=== PATIENT | female | born 1985 | race African-American/Black ===

== ENCOUNTER 2020-07-27 09:10 | Emergency (ER) | payer OTHER, BC ==
[~2020-07-27] VITALS: Ht 160 cm; Wt 65.9 kg
[2020-07-27 09:46] VITALS: BP 135/94
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
[2020-07-27] MEDS ORDERED: hydrOXYzine 25 MG TABLET PO ONE (10:45)
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
[2020-07-27] MEDS ORDERED: METH-561 PO (11:53)
[2020-07-27] MEDS ORDERED: IBUPROFEN 400 MG TABLET. PO ONE (12:00)
== END 2020-07-27 12:17 | disposition home or self-care (01) ==
LOC: ER 09:10
DX: S96.812A Strain of other specified muscles and tendons at ankle and foot level, left foot, initial encounter (principal); M25.572 Pain in left ankle and joints of left foot; R07.89 Other chest pain; M54.5 Low back pain; G43.909 Migraine, unspecified, not intractable, without status migrainosus; Z98.890 Other specified postprocedural states; V49.9XXA Car occupant (driver) (passenger) injured in unspecified traffic accident, initial encounter; Y93.89 Activity, other specified; Y92.413 State road as the place of occurrence of the external cause; Y99.8 Other external cause status
CPT/HCPCS: 71046; 72100; 73590; 73610; 81025; 99284